=== PATIENT | female | born 1985 ===

== ENCOUNTER 2017-06-17 14:12 | Emergency (ER) | payer OTHER ==
[2017-06-17 14:44] VITALS: TEMP 97.9
[2017-06-17] MEDS ORDERED: Amoxicillin-Clav 875-125 mg Tab PO STA (15:06)
--- NOTE | 2017-06-17 15:08 | C.PDOC ---
History Of Present Illness 31 yo female w/o significant PMHx come in for evaluation of gradual onset of sore throat for past 5 days. Pt reports, pain worse for past few days, pain on swallow, mild neck pain and swelling over glands. Otherwise, pt denies high fever, chills, headache, dizziness, earache, drooling, trismus, recent dental work, cough, CP, SOB, wheezing, abd. pain, V/D, back pain, UTI sx. Ambulate to Ed for evaluation, not in any apparent distress. Time Seen by Provider: 06/17/17 14:45 Chief Complaint (Nursing): ENT Problem History Per: Patient Onset/Duration Of Symptoms: Gradual Past Medical History Reviewed: Historical Data, Nursing Documentation, Vital Signs Vital Signs: Last Vital Signs Temp 97.9 F 06/17/17 14:41 Pulse 89 06/17/17 14:41 Resp 20 06/17/17 14:41 BP 123/46 L 06/17/17 14:41 Pulse Ox 99 06/17/17 14:41 - Medical History PMH: No Chronic Diseases Surgical History: No Surg Hx - [facility] Procedures APPLICATION OF SPLINT (03/16/04) INJECT/INFUSE NEC (05/23/04) NEBULIZER THERAPY (05/23/04) PRESSURE DRESSING APPLIC (03/08/03) Family History: States: No Known Family Hx - Social History Hx Tobacco Use: No Hx Alcohol Use: No Hx Substance Use: No - Immunization History Hx Tetanus Toxoid Vaccination: No Hx Pneumococcal Vaccination: No Review Of Systems Except As Marked, All Systems Reviewed And Found Negative. Constitutional: Positive for: Malaise. Negative for: Fever, Chills ENT: Positive for: Nose Congestion, Throat Pain, Throat Swelling. Negative for : Ear Pain, Ear Discharge, Nose Discharge Cardiovascular: Negative for: Chest Pain, Palpitations Respiratory: Negative for: Cough, Shortness of Breath, Wheezing Gastrointestinal: Negative for: Nausea, Vomiting, Abdominal Pain, Diarrhea Genitourinary: Negative for: Dysuria Skin: Negative for: Rash Neurological: Negative for: Altered Mental Status Physical Exam - Physical Exam Appears: Well, Non-toxic, No Acute Distress Skin: Normal Color, Warm, Dry, No Rash Head: Normacephalic Eye(s): bilateral: PERRL Ear(s): Bilateral: Normal Nose: No Flaring, No Discharge Oral Mucosa: Moist, No Drooling, No Trismus Tongue: Normal Appearing Throat: Erythema (mod w/B/L edema), Exudate (scant B/L), No Drooling, Other ( uvula m idline, no edema.) Neck: Trachea Midline, Supple Cardiovascular: Rhythm Regular Respiratory: No Decreased Breath Sounds, No Accessory Muscle Use, No Stridor, No Wheezing Gastrointestinal/Abdominal: Soft, No Tenderness, No Distention, No Guarding Back: No CVA Tenderness Extremity: Normal ROM, No Deformity, No Swelling Neurological/Psych: Oriented x3, Normal Speech ED Course And Treatment O2 Sat by Pulse Oximetry: 99 Pulse Ox Interpretation: Normal Progress Note: On re-evaluation, pt is afebrile, hemodynamicaly stable. Non- toxic. Tolerate PO well in ED. PulseOx 99% RA. Neck: Supple, (-) meningeal sign. ENT: exam c/w acute pharyngitis. uvula midline, no edema. Lungs: CTA B/L , BS equal B/L. CVS: (+)S1S2, reg. Abd: benign, (-) guarding, (-) rebound. back: (-) CVA tenderness. Pt has clinical findings c/w acute pharyngitis r/o strep throat. Pt advised. ref. to f/u with PMD, ENT in 2-3 days for re-eval. return if any new changes. Disposition Counseled Patient/Family Regarding: Diagnosis, Need For Followup, Rx Given - Disposition Referrals: [facility] [Outside] Disposition: HOME/ ROUTINE Disposition Time: 15:06 Condition: STABLE Additional Instructions: Encourage fluids Warm salty water throat gurgles 2-3 times daily Take medication as prescribed Follow up with PMD, ENT in 2-3 days for re-evaluation. Return to ED if any worsening or new changes. Prescriptions: Amoxicillin/Clavulanate [Augmentin 875 MG-125 MG] 1 tab PO BID #14 tab Ibuprofen [Motrin Tab] 400 mg PO Q6 #20 tab Prednisone [Deltasone] 40 mg PO DAILY #6 tablet Instructions: Strep Throat (DC) Forms: [facility] ([place]), Work Excuse - Clinical Impression Clinical Impression: Acute pharyngitis
[2017-06-17] MEDS ORDERED: Amoxicillin-Clav 875-125 mg Tab PO ONE (15:34)
[2017-06-17 15:43] VITALS: BP 124/63; PULSE 85; RESP 18; O2SAT 98
== END 2017-06-17 15:43 | disposition home or self-care (01) ==
LOC: C.ER 14:12
DX: J02.9 Acute pharyngitis, unspecified (principal)